=== PATIENT | male | born 1965 | race Caucasian/White ===

== ENCOUNTER → 2016-08-16 | Outpatient (CLI) | payer OTHER ==
[~2016-08-16] MED LIST: ADVAIR 250/501 EA INH; AMOX/CLAV POT 81 TAB PO; ASPIRIN81 M1 PO; B COMPLEX1 EACH PO; FISH OIL EC 1,1 EACH PO; FUROSEMIDE20 M1 PO; GARLIC OIL1000 M1 PO; GLIPIZIDE ER10 M1 PO; LISINOPRIL5 MG PO; MEDROL DOSEPAK4 MG PO; METFORMIN1000 MG PO; OMEPRAZOLE40 MG PO; VENTOLIN H0.09 MG/AC INH
== END | disposition home or self-care (01) ==
LOC: RAD 14:30
DX: S92.352D Displaced fracture of fifth metatarsal bone, left foot, subsequent encounter for fracture with routine healing (principal); X58.XXXD Exposure to other specified factors, subsequent encounter

== ENCOUNTER → 2016-09-20 | Outpatient (CLI) | payer OTHER ==
[2016-09-20 12:18] LABS: HEMOGLOBIN A1c 10.2 % (4.8-5.6)
[2016-09-20 12:26] LABS: ALBUMIN 3.3 gm/dl (3.1-4.5); ALKALINE PHOSPHATASE 109 U/L (45-117); BILIRUBIN, TOTAL 0.2 mg/dl (0.2-1.0); BUN 8 mg/dl (7-24); CARBON DIOXIDE 29 mmol/L (21-32); CHLORIDE 100 mmol/L (98-107); EST GLOM FILT AFRICAN AMERICAN > 60 ml/min; GLUCOSE 227 mg/dL (65-99); MAGNESIUM 1.6 mg/dL (1.5-2.1); SGOT/AST 27 IU/L (3-35); SGPT/ALT 62 U/L (12-78); SODIUM 137 mmol/L (136-145); TOTAL PROTEIN 7.3 gm/dL (6.4-8.2)
== END | disposition home or self-care (01) ==
LOC: LAB 11:21
PROVIDERS: Family Medicine
DX: E11.9 Type 2 diabetes mellitus without complications (principal); E78.5 Hyperlipidemia, unspecified

== ENCOUNTER 2017-08-16 16:41 | Emergency (ER) | payer OTHER ==
[~2017-08-16] VITALS: Wt 127.0 kg
[2017-08-16] MEDS ORDERED: LIDEX 0.05% CRE15 GM T (16:55)
[2017-08-16] MEDS ORDERED: CEPHALEXIN500 M1 PO (16:55)
== END 2017-08-16 16:59 | disposition home or self-care (01) ==
LOC: ED 16:41
DX: S80.861A Insect bite (nonvenomous), right lower leg, initial encounter (principal); S80.862A Insect bite (nonvenomous), left lower leg, initial encounter; S40.861A Insect bite (nonvenomous) of right upper arm, initial encounter; S40.862A Insect bite (nonvenomous) of left upper arm, initial encounter; Z79.899 Other long term (current) drug therapy; Z79.82 Long term (current) use of aspirin; W57.XXXA Bitten or stung by nonvenomous insect and other nonvenomous arthropods, initial encounter; Y93.89 Activity, other specified; Y92.89 Other specified places as the place of occurrence of the external cause; Y99.8 Other external cause status

== ENCOUNTER → 2019-03-02 | Outpatient (CLI) | payer OTHER ==
[~2019-03-02] MED LIST changes: +CEPHALEXIN500 M1 PO; +LIDEX 0.05% CRE15 GM T
[2019-03-02 12:16] LABS: HEMATOCRIT 49.5 % (42.0-52.0); HEMOGLOBIN 16.5 g/dl (14.0-18.0); MEAN CELL VOLUME 89.8 fl (80.0-94.0); MEAN CORPUSCULAR HGB 29.9 pg (27.0-31.0); MEAN CORPUSCULAR HGB CONC 33.3 g/dl (33.0-37.0); MEAN PLATELET VOLUME 10.7 fl (9.6-12.3); RED BLOOD COUNT 5.51 10*6/uL (4.50-5.90); RED CELL DISTRI WIDTH 13.5 % (0-14.5)
[2019-03-02 12:49] LABS: CHLORIDE 102 mmol/L (98-107); POTASSIUM 4.1 mmol/L (3.5-5.1); SODIUM 138 mmol/L (136-145)
[2019-03-02 12:59] LABS: ALBUMIN 3.3 gm/dl (3.1-4.5); ALKALINE PHOSPHATASE 84 U/L (45-117); BUN 11 mg/dl (7-24); CHOLESTEROL 207 mg/dL (<200); CREATININE 1.13 mg/dL (0.70-1.30); HDL CHOLESTEROL 34 mg/dl (40-60); LDL CHOLESTEROL 96 mg/dL (9-159); SGOT/AST 19 IU/L (3-35); SGPT/ALT 26 U/L (12-78); TOTAL PROTEIN 7.5 gm/dL (6.4-8.2); TRIGLYCERIDES 383 mg/dl (<150); VLDL CHOLESTEROL 77 mg/dL (6-40)
== END | disposition home or self-care (01) ==
LOC: LAB 11:46
PROVIDERS: Registered Nurse Flight
DX: E11.65 Type 2 diabetes mellitus with hyperglycemia (principal); I10 Essential (primary) hypertension; E78.2 Mixed hyperlipidemia

== ENCOUNTER → 2019-07-15 | Outpatient (CLI) | payer OTHER ==
[2019-07-15 13:26] LABS: HEMATOCRIT 48.6 % (42.0-52.0); MEAN CELL VOLUME 92.4 fl (80.0-94.0); MEAN CORPUSCULAR HGB 30.2 pg (27.0-31.0); MEAN CORPUSCULAR HGB CONC 32.7 g/dl (33.0-37.0); MEAN PLATELET VOLUME 10.2 fl (9.6-12.3); RED BLOOD COUNT 5.26 10*6/uL (4.50-5.90); RED CELL DISTRI WIDTH 13.6 % (0-14.5); WHITE BLOOD COUNT 8.1 10*3/uL (4.8-10.8)
[2019-07-15 13:51] LABS: ALBUMIN 3.2 gm/dl (3.1-4.5); ALKALINE PHOSPHATASE 71 U/L (45-117); BUN 10 mg/dl (7-24); CHLORIDE 106 mmol/L (98-107); CHOLESTEROL 103 mg/dL (<200); CREATININE 1.16 mg/dL (0.70-1.30); HDL CHOLESTEROL 28 mg/dl (40-60); LDL CHOLESTEROL 14 mg/dL (9-159); POTASSIUM 4.4 mmol/L (3.5-5.1); SGOT/AST 29 IU/L (3-35); SGPT/ALT 31 U/L (12-78); SODIUM 140 mmol/L (136-145); TRIGLYCERIDES 303 mg/dl (<150); VLDL CHOLESTEROL 61 mg/dL (6-40)
== END | disposition home or self-care (01) ==
LOC: LAB 12:35
PROVIDERS: Registered Nurse Flight
DX: E11.65 Type 2 diabetes mellitus with hyperglycemia (principal); E78.5 Hyperlipidemia, unspecified